=== PATIENT | male | born 1995 | race Two or more races ===

== ENCOUNTER 2021-03-03 12:16 | Emergency (ER) | payer OTHER ==
[~2021-03-03] VITALS: Ht 167.6 cm; Wt 86.2 kg
[2021-03-03 15:06] VITALS: BP 128/75
== END 2021-03-03 15:58 | disposition home or self-care (01) ==
LOC: ER 12:16
DX: S61.212D Laceration without foreign body of right middle finger without damage to nail, subsequent encounter (principal); X58.XXXD Exposure to other specified factors, subsequent encounter

== ENCOUNTER 2022-01-14 11:10 | Emergency (ER) | payer OTHER ==
[~2022-01-14] VITALS: Ht 167.6 cm; Wt 86.7 kg
[2022-01-14] MEDS ORDERED: ONDANSETRON ODT 4 MG TAB PO ONE (11:45)
[2022-01-14 12:15] LABS: Amphetamine Screen, Urine NEGATIVE (NEGATIVE); Barbiturate Scree,Urine NEGATIVE (NEGATIVE); Benzodiazephine Screen, Urine NEGATIVE (NEGATIVE); Cannabinoid Screen, Urine NEGATIVE (NEGATIVE); Cocaine Screen, Urine NEGATIVE (NEGATIVE); Opiate Scree,Urine NEGATIVE (NEGATIVE); Phencyclidine Screen, Urine NEGATIVE (NEGATIVE)
[2022-01-14 12:18] LABS: Urine Bacteria NONE SEEN /hpf (None Seen); Urine WBC 1 /hpf (0 - 3)
[2022-01-14 12:22] LABS: Basophils # (auto) 0.1 10 ^3/uL (0-0.2); Basophils % (auto) 1.2 % (0.0-2.0); Eosinophils # (auto) 0.2 10 ^3/uL (0-0.8); Eosinophils % (auto) 2.8 % (0.0-7.0); Hematocrit 46.2 % (41.0-53.0); Hemoglobin 15.9 g/dL (13.5-17.5); Lymphocytes # (auto) 2.8 10 ^3/uL (0.4-5.4); Lymphocytes % (auto) 43.1 % (10.0-50.0); Mean Corpuscular Hemoglobin 28.6 pg (28.0-32.0); Mean Corpuscular Hgb Conc. 34.3 g/dL (32.0-36.0); Mean Corpuscular Volume 83.3 fL (80.0-100.0); Monocytes # (auto) 0.4 10 ^3/uL (0-1.3); Neutrophils % (auto) 46.9 % (37.0-80.0); Nucleated Red Blood Cells % 0.1 %; Red Blood Cells 5.55 10^6/uL (4.5-5.90); Red Cell Distribution Width 14.2 % (11.8-14.3); White Blood Cell 6.4 10^3/uL (4.4-10.8)
[2022-01-14 12:53] LABS: Albumin 4.2 g/dL (3.4-5.0)
[2022-01-14 12:57] LABS: BUN/Creatinine Ratio 9.6; Bilirubin, Total 0.6 mg/dL (0.2-1.0); Total Protein 7.8 g/dL (6.4-8.2)
[2022-01-14 13:00] LABS: Urine Blood Normal /uL (Negative); Urine Specific Gravity 1.005 (1.001-1.035)
[2022-01-14] MEDS ORDERED: IBUP800T27 PO (16:06)
[2022-01-14 16:45] VITALS: BP 138/89
== END 2022-01-14 16:48 | disposition home or self-care (01) ==
LOC: ER 11:10
DX: K76.0 Fatty (change of) liver, not elsewhere classified (principal); Z20.822 Contact with and (suspected) exposure to COVID-19
CPT/HCPCS: 36415; 74177; 80053; 80307; 81001; 85025; 87426; 87804; 99285; Q0162; Q9967